=== PATIENT | male | born 2000 | race African-American/Black ===

== ENCOUNTER 2019-06-06 15:28 | Day surgery (SDC) | payer OTHER ==
[2019-06-06] VITALS (11 sets, daily range): BP systolic 123–135; BP diastolic 55–77; PULSE 63–91; TEMP 97.5–99.1
[~2019-06-06] VITALS: Ht 170.2 cm; Wt 81.8 kg
--- NOTE | 2019-06-06 16:01 | NUR ---
ULTRASOUND AT BEDSIDE AT THIS TIME.
--- NOTE | 2019-06-06 16:41 | NUR ---
DR SAINZ INTO TALK WITH PATIENT AND TO PROCEED WITH SURGERY.
--- NOTE | 2019-06-06 18:20 | NUR ---
PATIENT ARRIVED TO ROOM 350 VIA BED FROM PACU. PATIENT IS DROWSY FROM SURGERY BUT OTHERWISE A&O. POST-OP VSS. PATIENT DENIES PAIN AT THIS TIME. SCROTAL MIDLINE INCISION DRESSED WITH 4X4 GAUZE AND JOCK STRAP. DRESSING IS CD&I. CALL LIGHT WITHIN REACH. NO OTHER NEEDS AT THIS TIME.
--- NOTE | 2019-06-06 18:42 | NUR ---
PATIENT TOLERATING CLEAR LIQUIDS. DINNER TRAY ORDERED. NO OTHER NEEDS AT THIS TIME.
--- NOTE | 2019-06-06 19:12 | NUR ---
REPORT GIVEN TO BUZZ TREVINO.
--- NOTE | 2019-06-06 19:45 | NUR ---
Received report from BUZZ Carvalho. Pt currently sitting up in bed watching television. Pt has his call light within reach and his bed is in lowest position.
--- NOTE | 2019-06-06 20:00 | NUR ---
Pt currently sitting up in bed. Pt vitals were within normal limits. Pt has no complaints of pain at this time. He did stat that he could tell he had surgery but his pain was not bad at the time. Pt lungs sounds were clear and his heart sounds were normal S1 and S2 sounds. Pt did have a scrotal incison but are was clean dry and intact with clean gauze at the site. Pt had no drainage noted at this time. Pt has a IV in his left ac at this time. Pt was able to eat some of his dinner and was drinking fluids. Pt has his call light within reach and his bed is in lowest position at this time.
--- NOTE | 2019-06-06 21:40 | NUR ---
Pt is currently dressed and sitting up in bed. Pt called and she stated that she was waiting on him in the ER parking lot. Pt was educated on the surgery and to do activity as tolerated. He was also informed that he was to be out of work for 2 weeks, and note was also given to patient along with prescriptions for his pain medication and stool softners. 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 Pt did state that he was having some pain, so pain medication was given at this time to help with the drive home. He did state that he would take Tylenol that he had at home for pain until the am. Pt vitals were within normal limits. Pt IV was discontinued at this time. Pt incisions were still clean dry and intact with the gauze in place with no drainage. Pt was transported to his car via wheelchair by the DRIVER SUPERVISOR. Pt stated that he had no other concerns at this time. Pt was informed to call if he had any abnormal findings that were listed in his discharge paperwork. Information packet was given to patient when he discharged along with all his valuable that were listed as well.
== END 2019-06-06 21:45 | disposition home or self-care (01) ==
LOC: SDCO 15:28 → SURG 18:20 → SDCO 21:45
DX: N44.00 Torsion of testis, unspecified (principal)
CPT/HCPCS: OP; J0690; J1100; J1885; J2250; J2405; J2704; J3010; J7120